=== PATIENT | male | born 1965 | race American Indian/Alaskan Native ===

== ENCOUNTER 2019-11-09 04:20 | Inpatient (IN) | payer BC ==
--- NOTE | 2019-11-09 05:15 | XRay Report ---
CHEST 1 VIEW INDICATION / CLINICAL INFORMATION: fever cough. COMPARISON: None available. FINDINGS: SUPPORT DEVICES: None. HEART / MEDIASTINUM: No significant abnormality. LUNGS / PLEURA: No significant pulmonary or pleural abnormality. No pneumothorax. ADDITIONAL FINDINGS: No significant additional findings. IMPRESSION: 1. No acute findings. Signer Name: Iker Navarrete MD Signed: 11/09/2019 5:10 AM Workstation Name: [id number]
[2019-11-09 05:29] LABS: Basophils % (Auto) 0.2 % (0.0-1.8); Hematocrit 37.2 % (35.5-45.6); Hemoglobin 12.2 gm/dl (11.8-15.2); Lymphocytes # (Auto) 1.1 K/mm3 (1.2-5.4); Lymphocytes % (Auto) 10.6 % (13.4-35.0); Mean Corpuscular HGB Conc 33 % (32-34); Mean Corpuscular Volume 75 fl (84-94); Monocytes # (Auto) 0.5 K/mm3 (0.0-0.8); Monocytes % (Auto) 4.8 % (0.0-7.3); Platelet Count 239 K/mm3 (140-440)
[2019-11-09 06:03] LABS: Alanine Aminotransferase 34 units/L (7-56); Albumin 3.9 g/dL (3.9-5); BUN/Creatinine Ratio 14; Blood Urea Nitrogen 18 mg/dL (9-20); Hemolysis Index 1
--- NOTE | 2019-11-09 08:26 | Emergency Department Report ---
ED General Adult HPI - General Chief complaint: Dyspnea/Respdistress Stated complaint: DIFFICULTY IN BREATHING Time Seen by Provider: 11/09/19 08:21 Source: patient, EMS Mode of arrival: Wheelchair Limitations: No Limitations - History of Present Illness Initial comments: This is a very pleasant 54-year-old man who states he had a positive exposure to the coronavirus with a worker that tested +,2 weeks ago. He has been on self- isolation. He developed a cough which was largely nonproductive and a low-grade fever. This morning he found himself to be very short of breath. He therefore called EMS. Medics found him to have a pulse oximetry of 90%. He was placed on supplemental O2. He was brought to the emergency department for further care and evaluation. At the time of my encounter the patient is resting comfortably. His pulse oximetry is 96%. His heart rate was 129. Blood pressure was normotensive. -: Gradual, days(s) Worsens with: none Associated Symptoms: denies other symptoms, shortness of breath Treatments Prior to Arrival: none - Related Data Allergies Allergy/AdvReac Type Severity Reaction Status Date / Time No Known Allergies Allergy Unverified 11/09/19 04:40 ED Review of Systems ROS: Stated complaint: DIFFICULTY IN BREATHING Other details as noted in HPI Constitutional: denies: chills, fever Eyes: denies: eye pain, eye discharge, vision change ENT: denies: ear pain, throat pain Respiratory: cough, shortness of breath. denies: wheezing Cardiovascular: denies: chest pain, palpitations Endocrine: no symptoms reported Gastrointestinal: denies: abdominal pain, nausea, diarrhea Genitourinary: denies: urgency, dysuria Musculoskeletal: denies: back pain, joint swelling, arthralgia Skin: denies: rash, lesions Neurological: denies: headache, weakness, paresthesias Psychiatric: denies: anxiety, depression Hematological/Lymphatic: denies: easy bleeding, easy bruising ED Past Medical Hx - Past Medical History Previous Medical History?: Yes Hx Hypertension: Yes Hx HIV: Yes - Surgical History Past Surgical History?: No - Social History Smoking Status: Never Smoker Substance Use Type: Alcohol ED Physical Exam - General Limitations: No Limitations General appearance: alert, in no apparent distress - Head Head exam: Present: atraumatic, normocephalic - Eye Eye exam: Present: normal appearance. Absent: scleral icterus - ENT ENT exam: Present: mucous membranes moist - Neck Neck exam: Present: normal inspection - Respiratory Respiratory exam: Present: normal lung sounds bilaterally. Absent: respiratory distress - Cardiovascular Cardiovascular Exam: Present: normal rhythm, tachycardia. Absent: systolic murmur, diastolic murmur, rubs, gallop - GI/Abdominal GI/Abdominal exam: Present: soft, normal bowel sounds. Absent: distended, tenderness, rebound, rigid - Rectal Rectal exam: Present: deferred - Extremities Exam Extremities exam: Present: normal inspection - Back Exam Back exam: Present: normal inspection - Neurological Exam Neurological exam: Present: alert, oriented X3, CN II-XII intact. Absent: motor sensory deficit - Psychiatric Psychiatric exam: Present: normal affect, normal mood - Skin Skin exam: Present: warm, dry, intact, normal color. Absent: rash ED Course Vital Signs 11/09/19 11/09/19 11/09/19 04:30 04:33 04:45 Temperature 100.4 F H Pulse Rate 123 H Respiratory 42 H Rate Blood Pressure 155/86 O2 Sat by Pulse 99 97 Oximetry 11/09/19 11/09/19 11/09/19 05:00 05:15 05:31 Temperature Pulse Rate 121 H 123 H 124 H Respiratory 50 H 52 H 48 H Rate Blood Pressure 144/81 140/83 144/85 O2 Sat by Pulse 99 99 96 Oximetry 11/09/19 11/09/19 11/09/19 05:45 06:00 06:15 Temperature Pulse Rate 120 H 125 H 128 H Respiratory 45 H 41 H 44 H Rate Blood Pressure 138/86 130/75 130/75 O2 Sat by Pulse 97 99 100 Oximetry 11/09/19 11/09/19 11/09/19 06:30 06:45 07:00 Temperature Pulse Rate 122 H 122 H 125 H Respiratory 43 H 42 H 45 H Rate Blood Pressure 139/91 144/86 132/79 O2 Sat by Pulse 99 96 97 Oximetry 11/09/19 11/09/19 11/09/19 07:15 07:30 07:45 Temperature Pulse Rate 122 H 121 H 124 H Respiratory 43 H 34 H 49 H Rate Blood Pressure 136/88 134/97 134/97 O2 Sat by Pulse 96 99 97 Oximetry 11/09/19 08:01 Temperature Pulse Rate 121 H Respiratory 45 H Rate Blood Pressure 134/97 O2 Sat by Pulse 98 Oximetry - Reevaluation(s) Reevaluation #1: Patient is hypoxic and found to be significantly tachycardic. He has ancillary testing which is suggestive of COVID 19 infection. His chest x-ray is negative. His d-dimer is negative. I have discussed this with the hospitalist. They are recommending admission with a presumptive diagnosis of a Covid 19 infection. 2 lactic acid levels were negative. His d-dimer was normal. We do not feel that a CT exam is indicated at this time. Further care and evaluation per the hospitalist. IV bolus ordered. Azithromycin ordered. 11/09/19 08:43 11/09/19 08:44 ED Medical Decision Making - Lab Data Result diagrams: 11/09/19 05:15 11/09/19 05:15 Laboratory Results - last 24 hr 11/09/19 11/09/19 11/09/19 05:15 05:15 05:15 WBC 10.0 RBC 5.00 Hgb 12.2 Hct 37.2 MCV 75 L MCH 24 L MCHC 33 RDW 15.0 Plt Count 239 Lymph % (Auto) 10.6 L [place] % (Auto) 4.8 Eos % (Auto) 0.0 Baso % (Auto) 0.2 Lymph # 1.1 L [place] # 0.5 Eos # 0.0 Baso # 0.0 Seg Neutrophils % 84.4 H Seg Neutrophils # 8.4 H D-Dimer 172.87 Sodium 134 L Potassium 3.9 Chloride 96.7 L Carbon Dioxide 21 L Anion Gap 20 BUN 18 Creatinine 1.3 Estimated GFR > 60 BUN/Creatinine Ratio 14 Glucose 123 H Lactic Acid Calcium 9.0 Ferritin Total Bilirubin 0.40 AST 47 H ALT 34 Alkaline Phosphatase 65 Lactate Dehydrogenase C-Reactive Protein Total Protein 8.0 Albumin 3.9 Albumin/Globulin Ratio 1.0 11/09/19 11/09/19 11/09/19 05:15 05:15 05:15 WBC RBC Hgb Hct MCV MCH MCHC RDW Plt Count Lymph % (Auto) [place] % (Auto) Eos % (Auto) Baso % (Auto) Lymph # [place] # Eos # Baso # Seg Neutrophils % Seg Neutrophils # D-Dimer Sodium Potassium Chloride Carbon Dioxide Anion Gap BUN Creatinine Estimated GFR BUN/Creatinine Ratio Glucose Lactic Acid 0.80 Calcium Ferritin 584.0 H Total Bilirubin AST ALT Alkaline Phosphatase Lactate Dehydrogenase 299 H C-Reactive Protein 14.00 H Total Protein Albumin Albumin/Globulin Ratio 11/09/19 07:36 WBC RBC Hgb Hct MCV MCH MCHC RDW Plt Count Lymph % (Auto) [place] % (Auto) Eos % (Auto) Baso % (Auto) Lymph # [place] # Eos # Baso # Seg Neutrophils % Seg Neutrophils # D-Dimer Sodium Potassium Chloride Carbon Dioxide Anion Gap BUN Creatinine Estimated GFR BUN/Creatinine Ratio Glucose Lactic Acid 0.70 Calcium Ferritin Total Bilirubin AST ALT Alkaline Phosphatase Lactate Dehydrogenase C-Reactive Protein Total Protein Albumin Albumin/Globulin Ratio - EKG Data -: EKG Interpreted by Hi EKG shows normal: sinus rhythm Rate: tachycardia - EKG Data Interpretation: subendocardial ischemia, other (Occasional ectopy) - Radiology Data Radiology results: report reviewed, image reviewed (Chest x-ray no acute process) Critical care attestation.: If time is entered above; I have spent that time in minutes in the direct care of this critically ill patient, excluding procedure time. ED Disposition Clinical Impression: Pneumonia due to 2019-nCoV, SIRS (systemic inflammatory response syndrome) Disposition: DC-09 OP ADMIT IP TO THIS HOSP Is pt being admited?: Yes Does the pt Need Aspirin: Yes Condition: Stable Time of Disposition: 08:45
[2019-11-09] MEDS ORDERED: SODIUM CHLORIDE 0.9% 1000 ML 1,000 ML IV ONE ×2 (08:32→08:50)
[2019-11-09] MEDS ORDERED: ASPIRIN 325 MG TAB PO ONE (08:45)
[2019-11-09] MEDS ORDERED: AZITHROMYCIN 500 MG in SODIUM CHLORIDE 0.9% 250ML 250 ML IV ONE (09:00)
--- NOTE | 2019-11-09 09:44 | History and Physical Report ---
History of Present Illness Date of examination: 11/09/19 Date of admission: 11/09/19 Chief complaint: SOB History of present illness: This is a 54-year-old man with h/o HIV and HTN who had a positive exposure to the coronavirus with a coworker who tested +2 weeks ago. He has been on self- isolation. He then developed a nonproductive cough and a low-grade fever. This morning he found himself to be very short of breath, He therefore called EMS. EMS found him to have a pulse oximetry of 90%. He was placed on supplemental O2. He was brought to the emergency department for further care and evaluation. He has been admitted for COVID 19 rule out. CXR w/o infiltrates but has elevated inflammatory marker. Past Medical Hx - Past Medical History Previous Medical History?: Yes Hx Hypertension: Yes Hx HIV: Yes - Surgical History Past Surgical History?: No - Social History Smoking Status: Never Smoker Substance Use Type: Alcohol - Family History Hx Hypertension: Yes Review of Systems Constitutional: denies: chills, fever Eyes: denies: eye pain, eye discharge, vision change ENT: denies: ear pain, throat pain Respiratory: cough, shortness of breath. denies: wheezing Cardiovascular: denies: chest pain, palpitations Endocrine: no symptoms reported Gastrointestinal: denies: abdominal pain, nausea, diarrhea Genitourinary: denies: urgency, dysuria Musculoskeletal: denies: back pain, joint swelling, arthralgia Skin: denies: rash, lesions Neurological: denies: headache, weakness, paresthesias Psychiatric: denies: anxiety, depression Hematological/Lymphatic: denies: easy bleeding, easy bruising Medications and Allergies Allergies Allergy/AdvReac Type Severity Reaction Status Date / Time No Known Allergies Allergy Unverified 11/09/19 04:40 Home Medications Medication Instructions Recorded Confirmed Last Taken Type Atorvastatin [Lipitor] 20 mg PO QDAY 11/09/19 11/09/19 Unknown History Elviteg/Elisa/Emtric/Tenofo Ala 150 mg PO QDAY 11/09/19 11/09/19 Unknown History [Genvoya (Nf)] Ergocalciferol (Vitamin D2) 5,000 units PO QDAY 11/09/19 11/09/19 Unknown History [Vitamin D2] Active Meds: Active Medications Azithromycin 500 mg/ Sodium (Chloride) 250 mls @ 250 mls/hr IV ONCE ONE; Protocol Stop: 11/09/19 09:59 Sodium Chloride (Nacl 0.9% 1000 Ml) 1,000 mls @ 250 mls/hr IV ONCE ONE Stop: 11/09/19 12:49 Exam - Physical Exam Narrative exam: Physical exam per ER physician Limited physical exam due to COVID 19 pandemic and limited PPE Constitutional:alert in NAD Neck: limited due to lack of PPE Oral:limited due to lack of PPE Cardiovascular: limited due to lack of PPE Respiratory: suzanne diminished per NS GI: limited due to lack of PPE Musculoskeletal: limited due to lack of PPE Skin: No rash or abscess Hem/Lymphatic: limited due to lack of PPE Psych: no agitated Neurological: no agitated - Constitutional Vitals: Temp Pulse Resp BP Pulse Ox 100.4 F H 121 H 45 H 134/97 98 11/09/19 04:33 11/09/19 08:01 11/09/19 08:01 11/09/19 08:01 11/09/19 08:01 Results - Labs CBC & Chem 7: 11/09/19 05:15 11/09/19 05:15 Labs: Abnormal lab results 11/09/19 11/09/19 11/09/19 Range/Units 05:15 05:15 05:15 MCV 75 L (84-94) fl MCH 24 L (28-32) pg Lymph % (Auto) 10.6 L (13.4-35.0) % Lymph # 1.1 L (1.2-5.4) K/mm3 Seg Neutrophils % 84.4 H (40.0-70.0) % Seg Neutrophils # 8.4 H (1.8-7.7) K/mm3 Sodium 134 L (137-145) mmol/L Chloride 96.7 L (98-107) mmol/L Carbon Dioxide 21 L (22-30) mmol/L Glucose 123 H (75-100) mg/dL Ferritin 584.0 H (13.0-400.0) ng/mL AST 47 H (5-40) units/L Lactate Dehydrogenase (91-180) units/L C-Reactive Protein (0.00-1.30) mg/dL 11/09/19 Range/Units 05:15 MCV (84-94) fl MCH (28-32) pg Lymph % (Auto) (13.4-35.0) % Lymph # (1.2-5.4) K/mm3 Seg Neutrophils % (40.0-70.0) % Seg Neutrophils # (1.8-7.7) K/mm3 Sodium (137-145) mmol/L Chloride (98-107) mmol/L Carbon Dioxide (22-30) mmol/L Glucose (75-100) mg/dL Ferritin (13.0-400.0) ng/mL AST (5-40) units/L Lactate Dehydrogenase 299 H (91-180) units/L C-Reactive Protein 14.00 H (0.00-1.30) mg/dL Assessment and Plan Suspect COVID 19 -Patient is tachycardic, tachypneic with elevated ferritin, LDH and CRP -Has exposure to positive coping 19 patient with h/o HIV - ordered rapid flu, if that is negative will order for COVID19 - start on zithromax, albuterol MDI Acute hypoxic respiratory failure with exertion - monitor O2 sat, cont supplemental o2 and albuterol nebs SIRS, could be from COVID 19 - ordered blood cx, rapid flu test HIV, cont home meds DVt Px, lovenox
[2019-11-09] MEDS ORDERED: hydrALAZINE 20 MG/1 ML INJ IV PRN (09:46)
[2019-11-09] MEDS ORDERED: ACETAMINOPHEN 325 MG TAB PO PRN (09:46)
[2019-11-09] MEDS ORDERED: HYDROcodone/ACETAMINOPHEN 5-325 MG TAB PO PRN (09:46)
[2019-11-09] MEDS: ALBUTEROL 2.5 MG/3 ML NEBU IH SCH ×3 (14:38→22:22)
[2019-11-09] MEDS: CHOLECALCIFEROL (VIT D3) 1000 UNIT (25 mcg) TAB PO SCH (17:41)
[2019-11-09] MEDS ORDERED: HYDROXYCHLOROQUINE 200 MG TAB PO SCH (22:00)
[2019-11-09] MEDS: ENOXAPARIN 40 MG/0.4 ML INJ SUB-Q SCH (22:30)
[2019-11-09] MEDS: guaiFENesin 200 MG TAB PO PRN (23:48)
[2019-11-10] MEDS: ALBUTEROL 2.5 MG/3 ML NEBU IH SCH ×4 (08:46→21:21)
[2019-11-10] MEDS ORDERED: TENOFOVIR ALAFENAMIDE PO SCH (10:00)
[2019-11-10] MEDS ORDERED: ERGOCALCIFEROL (VIT D2) 50,000 UNIT CAP PO SCH (10:00)
[2019-11-10] MEDS ORDERED: EMTRICITABINE PO SCH (10:00)
[2019-11-10] MEDS ORDERED: COBICISTAT PO SCH (10:00)
[2019-11-10] MEDS ORDERED: ELVITEGRAVIR PO SCH (10:00)
[2019-11-10] MEDS ORDERED: HYDROXYCHLOROQUINE 200 MG TAB PO SCH ×2 (10:00→22:00)
[2019-11-10] MEDS: AZITHROMYCIN 500 MG in SODIUM CHLORIDE 0.9% 250ML 250 ML IV SCH (10:05)
[2019-11-10] MEDS: CHOLECALCIFEROL (VIT D3) 1000 UNIT (25 mcg) TAB PO SCH (10:06)
--- NOTE | 2019-11-10 12:39 | Progress Note ---
Assessment and Plan Suspect COVID 19 -Patient is tachycardic, tachypneic with elevated ferritin, LDH and CRP -Has exposure to positive coping 19 patient with h/o HIV - negative rapid flu, ordered for COVID19 - cont on zithromax, albuterol MDI, start on plaquinil Acute hypoxic respiratory failure with exertion - monitor O2 sat, cont supplemental o2 and albuterol nebs -Assess for home oxygen requirement SIRS, could be from COVID 19 - ordered blood cx, negative rapid flu test - wait for COVID19 result -sent out today HIV, cont home meds DVt Px, lovenox Disposition: We will assess for home O2 requirement, COVID 19 test sent out today Subjective Date of service: 11/10/19 Interval history: Patient seen and examined. Medical records and medication list reviewed. No acute event overnight noted by the RN. Patient denies any chest pain but complains of difficulty breathing. Patient is tolerating diet. Sent out COVID test today Discussed plan of care at bedside with patient. Objective - Exam Narrative Exam: Limited physical exam due to COVID 19 pandemic and limited PPE Constitutional:alert in NAD Neck: limited due to lack of PPE Oral:limited due to lack of PPE Cardiovascular: limited due to lack of PPE Respiratory: suzanne diminished per NS GI: limited due to lack of PPE Musculoskeletal: limited due to lack of PPE Skin: No rash or abscess Hem/Lymphatic: limited due to lack of PPE Psych: no agitated Neurological: no agitated - Constitutional Vitals: Vital Signs - 12hr 11/10/19 11/10/19 11/10/19 02:00 02:44 04:38 Temperature 99.8 F H Pulse Rate 107 H Pulse Rate [ 108 H Right Brachial] Respiratory 20 20 Rate Blood Pressure 117/85 123/76 O2 Sat by Pulse 95 94 Oximetry - Labs CBC & Chem 7: 11/09/19 05:15 11/09/19 05:15
[2019-11-10 13:07] LABS: C-Reactive Protein 13.7 mg/dL (0.00-1.30)
[2019-11-10] MEDS: HYDROXYCHLOROQUINE 200 MG TAB PO SCH ×2 (16:53→21:21)
[2019-11-10] MEDS: guaiFENesin 200 MG TAB PO PRN (20:25)
[2019-11-10] MEDS: ENOXAPARIN 40 MG/0.4 ML INJ SUB-Q SCH (21:21)
[2019-11-11] MEDS: ALBUTEROL 2.5 MG/3 ML NEBU IH SCH ×2 (08:50→13:44)
[2019-11-11] MEDS ORDERED: HYDROXYCHLOROQUINE 200 MG TAB PO SCH (10:00)
[2019-11-11] MEDS: CHOLECALCIFEROL (VIT D3) 1000 UNIT (25 mcg) TAB PO SCH (10:45)
[2019-11-11] MEDS: AZITHROMYCIN 500 MG in SODIUM CHLORIDE 0.9% 250ML 250 ML IV SCH (10:46)
--- NOTE | 2019-11-11 15:02 | Discharge Summary ---
Providers - Providers Date of Admission: 11/09/19 08:46 Date of discharge: 11/11/19 Attending physician: EWELINA AVILA Primary care physician: [employer]IVE [employer] Hospitalization Condition: Stable Hospital course: Discharge diagnosis: Suspect COVID 19 -Patient is tachycardic, tachypneic with elevated ferritin, LDH and CRP -Has exposure to positive coping 19 patient with h/o HIV - negative rapid flu, ordered for COVID19 - cont on zithromax, albuterol MDI, start on plaquinil Acute hypoxic respiratory failure with exertion - monitor O2 sat, cont supplemental o2 and albuterol nebs -Assess for home oxygen requirement SIRS, could be from COVID 19 - ordered blood cx, negative rapid flu test - wait for COVID19 result -sent out today HIV, cont home meds DVt Px, lovenox Disposition: TO HOME OR SELFCARE Time spent for discharge: 34 minutes Core Measure Documentation - Palliative Care Palliative Care/ Comfort Measures: Not Applicable - Core Measures Any of the following diagnoses?: none Exam - Physical Exam Narrative exam: Limited physical exam due to COVID 19 pandemic and limited PPE Constitutional:alert in NAD Neck: limited due to lack of PPE Oral:limited due to lack of PPE Cardiovascular: limited due to lack of PPE Respiratory: suzanne diminished per NS GI: limited due to lack of PPE Musculoskeletal: limited due to lack of PPE Skin: No rash or abscess Hem/Lymphatic: limited due to lack of PPE Psych: no agitated Neurological: no agitated - Constitutional Vitals: Temp Pulse Resp BP Pulse Ox 98.3 F 97 H 20 112/67 97 11/11/19 11:19 11/11/19 11:19 11/11/19 11:19 11/11/19 11:19 11/11/19 11:19 Plan Activity: advance as tolerated Weight Bearing Status: Weight Bear as Tolerated Diet: regular Special Instructions: home oxygen via (2 L nasal cannula) Additional Instructions: Call Martínez Strange - [phone] for pending COVID19 result. Upon discharge patient should self-quarantine at home until COVID testing returns. If negative, self-quarantine may end. If positive patient should self-quarantine for 14 days from symptom beginning. Public health and infection prevention will follow up with patients to notify them of their test results. Patients should return to hospital regardless if they have worsening fevers or respiratory status. Please avoid NSAIDs. Follow up with: PRIMARY CARE, [Primary Care Provider] - 3-5 Days CÉSAR DENNEY MD [Staff Physician] - 7 Days Prescriptions: Hydroxychloroquine [Plaquenil] 200 mg PO BID #4 tablet Albuterol INH(or & Nicu Only) [ProAir HFA Inhaler] 2 puff IH QID PRN #8.5 gram PRN Reason: Shortness Of Breath guaiFENesin [Robitussin] 200 mg PO Q6H PRN #30 tablet PRN Reason: Cough Zinc Sulfate 220 mg PO QDAY #5 capsule
[2019-11-11] MEDS ORDERED: ZINC SULFATE 220 MG CAP PO SCH (16:00)
[2019-11-11 18:15] VITALS: BP 114/75
== END 2019-11-11 21:36 | disposition home or self-care (01) | DRG 189 ==
LOC: ED 04:20 → 3A 08:46
PROVIDERS: ADMIT Internal Medicine; ATTEND Internal Medicine
DX: J96.01 Acute respiratory failure with hypoxia (principal); R65.10 Systemic inflammatory response syndrome (SIRS) of non-infectious origin without acute organ dysfunction; I10 Essential (primary) hypertension; Z82.49 Family history of ischemic heart disease and other diseases of the circulatory system; Z03.818 Encounter for observation for suspected exposure to other biological agents ruled out
CPT/HCPCS: 36415; 71045; 80053; 82140; 82728; 83615; 84145; 85025; 85379; 86140; 87040; 87400; 93005; 93010; 94640; 94760; G0378; 87502; J0456; J1650; J7030; J7050